=== PATIENT | female | born 1995 | race Caucasian/White ===

== ENCOUNTER 2021-11-07 03:42 | Inpatient (IN) | payer OTHER ==
[2021-11-07 04:12] VITALS: BMI 25.5
[2021-11-07] MEDS ORDERED: hydrALAZINE 20 MG/ML VIAL SLOW IVP PRN ×2 (04:45→09:16)
[2021-11-07] MEDS ORDERED: HYDROcodone/Acetaminophen 5/325 mg Tablet PO PRN ×4 (04:45→09:16)
[2021-11-07] MEDS ORDERED: Ibuprofen 800 MG TAB PO PRN (04:45)
[2021-11-07] MEDS ORDERED: Penicillin G Potassium 5 MILL.UNITS in Sodium Chloride 0.9% 100 ML IVPB SCH (04:45)
[2021-11-07] MEDS ORDERED: NS w/ Oxytocin 30 units 500 ML IV SCH ×2 (04:45→09:16)
[2021-11-07] MEDS ORDERED: Methylergonovine 0.2 MG/ML VIAL IM PRN ×2 (04:45→09:16)
[2021-11-07] MEDS ORDERED: Misoprostol 200 MCG TAB RC PRN (04:45)
[2021-11-07] MEDS ORDERED: Butorphanol Tartrate 1 MG/ML VIAL SLOW IVP PRN (04:45)
[2021-11-07] MEDS ORDERED: Promethazine HCl 25 MG/ML VIAL IM PRN ×2 (04:45→05:56)
[2021-11-07] MEDS ORDERED: Ondansetron PF 4 MG/2 ML Vial IVP PRN ×3 (04:45→09:16)
[2021-11-07] MEDS ORDERED: Carboprost 250 MCG/ML AMP IM PRN (04:45)
[2021-11-07] MEDS ORDERED: Lidocaine 1% (PF) 30 ML VIAL SC PRN (04:45)
[2021-11-07] MEDS ORDERED: NS w/ Oxytocin 30 units 500 ML IVPB SCH (04:45)
[2021-11-07] MEDS ORDERED: Diphenoxylate HCl/Atropine Tablet PO PRN ×2 (04:45)
[2021-11-07] MEDS ORDERED: Acetaminophen 500 MG TAB PO PRN (04:45)
[2021-11-07] MEDS ORDERED: Lactated Ringer's 1,000 ML IV SCH ×2 (04:45)
[2021-11-07 05:05] LABS: Hemoglobin 10.9 g/dL (12.0-15.5); Mean Corpuscular HGB CONC 33.2 g/dL (32.0-36.0); Mean Corpuscular Hemoglobin 26.3 pg (27.0-33.0); Mean Corpuscular Volume 79.2 fl (81.6-98.3); Platelet Count 190 10x3/uL (150-450); RBC Distribution Width 13.5 % (11.5-14.5); Red Blood Cell (RBC) Count 4.14 10x6/uL (3.90-5.03); White Blood Cell (WBC) Count 11.4 10x3/uL (3.5-10.5)
[2021-11-07] MEDS ORDERED: Fentanyl 2 mcg/Bup 0.1% Cadd 100 ML ONE (05:08)
[2021-11-07 05:27] LABS: Syphilis Antibody Nonreactive (Nonreactive); Syphilis Antibody Index 0.03 S/CO (<1.00 Non-Reactive)
[2021-11-07 05:29] LABS: Hep B Surf Ag Non-Reactive S/CO (NonReactive)
[2021-11-07 05:30] LABS: HBSAg Index 0.22 S/CO (0-0.99)
[2021-11-07] MEDS ORDERED: Lactated Ringer's 500 ML IV PRN (05:56)
[2021-11-07] MEDS ORDERED: Naloxone HCl 0.4 mg/ml Vial IVP PRN ×2 (05:56)
[2021-11-07] MEDS ORDERED: diphenhydrAMINE 50 MG/ML VIAL IVP PRN (05:56)
[2021-11-07] MEDS ORDERED: ePHEDrine Sulfate 50 MG/10 ML VIAL SLOW IVP PRN (05:56)
[2021-11-07] MEDS ORDERED: Moisturizing Cream (Eucerin) 113 GM JAR TOP PRN (05:56)
[2021-11-07] MEDS ORDERED: Acetaminophen 325 MG TAB PO PRN (05:56)
[2021-11-07] MEDS ORDERED: Communication Order-Pharmacy FS SCH (06:00)
[2021-11-07] MEDS ORDERED: Fentanyl 2 mcg/Bupivacaine 0.1% Cassette 100 ML EPIDURAL SCH (06:00)
[2021-11-07] MEDS ORDERED: Penicillin G 2.5 MILL.units 2.5 MILL.UNITS in Premix Bag 1 BAG IVPB SCH (09:00)
[2021-11-07] MEDS ORDERED: Misoprostol 200 MCG TAB VAG PRN (09:16)
[2021-11-07] MEDS ORDERED: Lanolin Ointment 7 GM TUBE TOP PRN (09:16)
[2021-11-07] MEDS ORDERED: Milk Of Magnesia 30 ML UDCUP PO PRN (09:16)
[2021-11-07] MEDS ORDERED: Benzocaine-Menthol 82.5 ML CAN TOP PRN (09:16)
[2021-11-07] MEDS ORDERED: Preparation H Ointment 28 GM TUBE PR PRN (09:16)
[2021-11-07] MEDS ORDERED: Bisacodyl 10 MG SUPP PR PRN (09:16)
[2021-11-07] MEDS ORDERED: Ferrous Sulfate 325 MG TAB PO SCH (09:30)
[2021-11-07 10:47] LABS: SARS-CoV-2 NAA Rapid Test Not Detected (NotDetected)
[2021-11-07] MEDS: Prenatal Vitamin 1 TAB PO SCH (11:05)
[2021-11-07] MEDS: Ibuprofen 800 MG TAB PO SCH ×2 (11:05→20:45)
[2021-11-07] MEDS: Docusate 100 MG CAP PO SCH ×2 (11:07→20:45)
[2021-11-07] MEDS: Ferrous Sulfate 325 MG TAB PO SCH (16:08)
[2021-11-08] MEDS: Ibuprofen 800 MG TAB PO SCH ×3 (04:50→18:21)
[2021-11-08] MEDS: Ferrous Sulfate 325 MG TAB PO SCH ×2 (07:27→16:38)
[2021-11-08] MEDS ORDERED: Bupivacaine 0.25% HCL 30 ML VIAL ONE (08:00)
[2021-11-08] MEDS: Prenatal Vitamin 1 TAB PO SCH (09:08)
[2021-11-08] MEDS: Docusate 100 MG CAP PO SCH ×2 (09:08→21:12)
[2021-11-09] MEDS: Ibuprofen 800 MG TAB PO SCH ×2 (03:53→11:01)
[2021-11-09] MEDS: Ferrous Sulfate 325 MG TAB PO SCH (07:26)
[2021-11-09 08:09] VITALS: BP 111/57; TEMP 98.1
[2021-11-09] MEDS: Prenatal Vitamin 1 TAB PO SCH (09:05)
[2021-11-09] MEDS: Docusate 100 MG CAP PO SCH (09:05)
== END 2021-11-09 14:05 | disposition home or self-care (01) | DRG 807 ==
LOC: CSHLD/OP 03:42 → CSHLD 04:22 → CSHPP 10:07
PROVIDERS: ADMIT Student in an Organized Health Care Education/Training Program; ATTEND Student in an Organized Health Care Education/Training Program
PROC: 10E0XZZ Delivery of Products of Conception, External Approach (ICD-10-PCS; principal; 2021-11-07)
PROC: 0HQ9XZZ Repair Perineum Skin, External Approach (ICD-10-PCS; 2021-11-07)
DX: O42.02 Full-term premature rupture of membranes, onset of labor within 24 hours of rupture (principal); Z37.0 Single live birth; Z20.822 Contact with and (suspected) exposure to COVID-19; Z3A.39 39 weeks gestation of pregnancy; J45.909 Unspecified asthma, uncomplicated; O99.52 Diseases of the respiratory system complicating childbirth; Z88.8 Allergy status to other drugs, medicaments and biological substances; Z91.040 Latex allergy status; O99.824 Streptococcus B carrier state complicating childbirth; O70.0 First degree perineal laceration during delivery; O76 Abnormality in fetal heart rate and rhythm complicating labor and delivery; O69.81X0 Labor and delivery complicated by cord around neck, without compression, not applicable or unspecified; O77.0 Labor and delivery complicated by meconium in amniotic fluid
CPT/HCPCS: 51702; 85027; 86780; 86850; 86900; 86901; 87340; 99285; J2540; J2590; J3490; J7120; S0020; U0002